=== PATIENT | female | born 1945 | race Two or more races ===

== ENCOUNTER 2019-06-20 22:11 | Inpatient (IN) | payer MEDICARE, OTHER ==
[~2019-06-20] VITALS: Ht 167.6 cm; Wt 61.2 kg
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
--- NOTE | 2019-06-20 22:20 | NUR ---
Dr. Thomas at bedside for MSE.
[2019-06-20 22:42] LABS: BASOPHILS % (AUTO) 0.5 % (0.0-2.0); EOSINOPHILS # (AUTO) 0.1 K/uL (0.0-0.7); EOSINOPHILS % (AUTO) 2.2 % (0.0-7.0); HEMATOCRIT 37.7 % (31.2-41.9); HEMOGLOBIN 12.5 g/dL (10.9-14.3); LYMPHOCYTES # (AUTO) 1.8 K/uL (20.0-40.0); LYMPHOCYTES % (AUTO) 31.7 % (20.5-51.5); MEAN CORPUSCULAR HEMOGLOBIN 32.2 uug (24.7-32.8); MEAN CORPUSCULAR HGB CONC 33 g/dL (32.3-35.6); MEAN CORPUSCULAR VOLUME 96.8 fL (75.5-95.3); MONOCYTES # (AUTO) 0.5 K/uL (2.0-10.0); MONOCYTES % (AUTO) 8.1 % (0.0-11.0); NEUTROPHILS # (AUTO) 3.2 K/uL (1.8-8.9); NEUTROPHILS % (AUTO) 57.5 % (38.5-71.5); PLATELET COUNT (AUTO) 155 K/uL (179-408); RED BLOOD CELL COUNT(AUTO) 3.89 MIL/uL (3.63-4.92); WHITE BLOOD COUNT (AUTO) 5.6 K/uL (3.8-11.8)
[2019-06-20] MEDS ORDERED: MAGN400O6 PO (22:44)
[2019-06-20] MEDS ORDERED: NA P133E RC (22:44)
[2019-06-20] MEDS ORDERED: LORA-258 PO (22:44)
[2019-06-20] MEDS ORDERED: MAG-55 PO (22:44)
[2019-06-20] MEDS ORDERED: CETI-110 PO (22:44)
[2019-06-20] MEDS ORDERED: ACET-2154 PO (22:44)
[2019-06-20] MEDS ORDERED: DIVA500T2 PO (22:44)
[2019-06-20] MEDS ORDERED: ATOR10TA PO (22:44)
[2019-06-20] MEDS ORDERED: CLON0.1T14 PO (22:44)
[2019-06-20] MEDS ORDERED: QUET100T PO (22:44)
[2019-06-20] MEDS ORDERED: QUET50TA PO (22:44)
[2019-06-20 22:51] LABS: CARBON DIOXIDE 32 mmol/L (21-32); CHLORIDE 102 mmol/L (98-107); CREATININE 0.9 mg/dL (0.6-1.3); GLUCOSE 88 mg/dL (74-106); POTASSIUM 3.8 mmol/L (3.5-5.1); UREA NITROGEN, BLOOD 18 mg/dL (7-18)
[2019-06-20] MEDS ORDERED: diphenhydrAMINE 50 MG/1 ML VIAL ONE (22:51)
--- NOTE | 2019-06-20 22:55 | NUR ---
Left voicemail for Sherin crisis decorator store to call us back.
[2019-06-20 22:57] LABS: ALANINE AMINOTRANSFERASE 19 U/L (14-59); ALKALINE PHOSPHATASE 48 U/L (50-136); ASPARTATE AMINOTRANSFERASE 13 U/L (15-37); BILIRUBIN,DIRECT 0.1 mg/dL (0.0-0.2); BILIRUBIN,TOTAL 0.3 mg/dL (0.2-1.0)
[2019-06-20] MEDS ORDERED: diphenhydrAMINE 50 MG/1 ML VIAL IM ONE (23:00)
[2019-06-20 23:02] LABS: *BILIRUBIN,URIN NEGATIVE (NEGATIVE); *BLOOD, URINE NEGATIVE (NEGATIVE); *CLARITY,URINE CLEAR (CLEAR); *COLOR,URINE YELLOW (YELLOW); *KETONES,URINE NEGATIVE (NEGATIVE); *UROBILINOGEN,URINE 0.2 E.U./dl (NORMAL); LEUKOCYTE ESTERASE ,URINE NEGATIVE (NEGATIVE); NITRITE, URINE NEGATIVE (NEGATIVE); UGLUCOSE NEGATIVE (NEGATIVE)
[2019-06-20 23:07] LABS: ACETAMINOPHEN < 2.0 ug/mL (10-30)
[2019-06-20 23:08] LABS: ETHANOL < 3 MG/DL (0-0)
[2019-06-20 23:09] LABS: *AMPHETAMINE, URINE NEGATIVE (NEGATIVE); *BARBITURATE, URINE NEGATIVE (NEGATIVE); *CANNABINOID, URINE NEGATIVE (NEGATIVE); *COCCAINE, URINE NEGATIVE (NEGATIVE); *OPIATE, URINE NEGATIVE (NEGATIVE); *PHENCYCLIDINE SCREEN,URINE NEGATIVE (NEGATIVE)
--- NOTE | 2019-06-20 23:33 | NUR ---
Spoke with Sherin, will be here shortly to evluate patient.
--- NOTE | 2019-06-21 00:43 | NUR ---
Sherin at bedside for eval.
[2019-06-21] MEDS ORDERED: HALOPERIDOL LACTATE 5 MG/1 ML VIAL IM ONE (01:00)
[2019-06-21] MEDS ORDERED: HALOPERIDOL LACTATE 5 MG/1 ML VIAL ONE (01:01)
--- NOTE | 2019-06-21 01:32 | NUR ---
Pt. admitted to MHU , under care of Dr. ANGELES Belongs List completed.
[2019-06-21 02:00] VITALS: BP 142/75
[2019-06-21] MEDS ORDERED: MAG HYDROX/AL HYDROX/SIMETH 30 ML LIQUID UDC PO PRN (02:00)
[2019-06-21] MEDS ORDERED: MAGNESIUM HYDROXIDE 30 ML LIQUID UDC PO PRN (02:00)
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
[2019-06-21] MEDS: CLONAZEPAM 0.5 MG TABLET PO PRN ×3 (08:37→20:54)
[2019-06-21 10:46] VITALS: BP 134/62
[2019-06-21] MEDS ORDERED: FLEET ENEMA 133 ML BOTTLE RC PRN (12:00)
[2019-06-21] MEDS ORDERED: CLONIDINE HCL 0.1 MG TABLET PO PRN (12:00)
[2019-06-21 12:35] LABS: THYROID STIMULATING HORMONE 8.611 mIU/mL (0.358-3.740)
[2019-06-21] MEDS ORDERED: INFLUENZA VACCINE 2019-2020 0.5 ML DISP.SYRIN IM ONE (13:30)
[2019-06-21] MEDS ORDERED: PNEUMOCOCCAL 23-VAL P-SAC VAC 0.5 ML VIAL IM ONE (13:30)
[2019-06-21] MEDS: ACETAMINOPHEN 325 MG TABLET PO PRN (15:16)
[2019-06-21 15:53] VITALS: BP 140/62
[2019-06-21] MEDS: VALPROIC ACID 250 MG/5 ML LIQUID UDC PO SCH (17:56)
[2019-06-21] MEDS: OLANZAPINE ZYDIS 5 MG TAB.RAPDIS PO SCH (20:09)
[2019-06-21] MEDS: ATORVASTATIN 10 MG TABLET PO SCH (20:09)
[2019-06-21 20:19] VITALS: BP 145/73
--- NOTE | 2019-06-21 21:11 | NUR ---
GPS: Pt. is confused,disoriented and disorganized. No insight to present situation. Med.compliant so far but combative,aggressive during care. Fall precautions observed. Re-directed frequently. Will continue to monitor. Denies pain at this time.
[2019-06-21] MEDS: TEMAZEPAM 7.5 MG CAPSULE PO PRN (21:48)
--- NOTE | 2019-06-22 06:02 | NUR ---
GPS: Pt.slept 8 hrs last night. Now awake and was assisted to the bathroom for elimination purposes. Remains confused,disoriented but allowing care from staff. No combative behavior noted. Fall precautions observed due to unsteady gait. Put back in bed with bed alarm on for safety. Re-directed prn.
[2019-06-22 07:30] VITALS: BP 136/62
[2019-06-22] MEDS: VALPROIC ACID 250 MG/5 ML LIQUID UDC PO SCH ×2 (08:51→20:26)
[2019-06-22] MEDS: CETIRIZINE HCL 10 MG TABLET PO SCH (08:52)
--- NOTE | 2019-06-22 11:12 | NUR ---
Social Work Family Contact: receiving worker spoke with patient's wwauob-hb-zau Roxanna ([phone]) who stated that she is the DPOA for the patient and will send documentations to this song writer. receiving worker discussed patient's discharge plan and treatment plan. Per Roxanna, she would want patient to go back to [facility].
--- NOTE | 2019-06-22 11:12 | NUR ---
Social Work Initial Discharge Plan: Patient currently resides at [facility] [address] [place] [address]; ([phone]). vegetable ii farmworker spoke with hxpxks-lz-gar Roxanna ([phone]) stated that she would want patient back to [facility]. vegetable ii farmworker spoke with Aileen ([phone]) who stated that admin coordinator will contact this tag writer. vegetable ii farmworker will work with the pt and the MD regarding appropriate discharge planning. vegetable ii farmworker will form a safe and proper discharge.
--- NOTE | 2019-06-22 13:17 | NUR ---
Social Work Coordination of Care: boom worker spoke with Mi ([phone]) and stated that they are going to have a discussion about the patient and will get back to this lead technical writer.
--- NOTE | 2019-06-22 15:01 | NUR ---
Social Work Individual Therapy: tailings worker met with patient for brief counseling to address patients aggressive and combative behavior. Patient is not cooperative with this development writer. This development writer was unable to have a meaningful conversation with this patient and is unable to have proper eye contact. Patient is incoherent and is unable to understand common verbal requests. Patient presents anxious and confused. This development writer attempted to conversate with patient and has a blank stare unable to comprehend.
[2019-06-22] MEDS: CLONAZEPAM 0.5 MG TABLET PO PRN (15:16)
[2019-06-22 16:00] VITALS: BP 140/83
[2019-06-22] MEDS: OLANZAPINE ZYDIS 5 MG TAB.RAPDIS PO SCH (20:26)
[2019-06-22] MEDS: ATORVASTATIN 10 MG TABLET PO SCH (20:26)
[2019-06-22 20:50] VITALS: BP 123/64
--- NOTE | 2019-06-22 22:00 | NUR ---
received to care, up in simona chair for safety, talking to self, appearing distracted by internal stimuli. compliant with medications and staff direction. as of 2199, she is asleep, in bed. no distress noted. will continue to monitor closely.
--- NOTE | 2019-06-23 06:00 | NUR ---
slept fairly well. continues to sleep. no distress noted.
[2019-06-23] MEDS: LEVOTHYROXINE SODIUM 25 MCG TABLET PO SCH (06:42)
[2019-06-23 07:30] VITALS: BP 152/81
[2019-06-23] MEDS: CETIRIZINE HCL 10 MG TABLET PO SCH (08:24)
[2019-06-23] MEDS: VALPROIC ACID 250 MG/5 ML LIQUID UDC PO SCH ×2 (08:25→20:32)
[2019-06-23 16:00] VITALS: BP 127/85
[2019-06-23] MEDS: CLONAZEPAM 0.5 MG TABLET PO PRN (16:14)
[2019-06-23 20:00] VITALS: BP 127/68
[2019-06-23] MEDS: ATORVASTATIN 10 MG TABLET PO SCH (20:34)
[2019-06-23] MEDS: OLANZAPINE ZYDIS 5 MG TAB.RAPDIS PO SCH (20:34)
--- NOTE | 2019-06-23 22:59 | NUR ---
GPS: Received pt sitting up in simona-chair on the hallway. Pt. alert and awake but very anxious and hyper talkative and incoherent. Cooperative with meds during routine med pass. Pt very confuse and unaware of surrounding and unable to understand common verbal request. PRN Restoril given as order due to pt. awake and very anxious still after routine meds. Will continue monitor for effectiveness and monitor for adverse effect.
[2019-06-23] MEDS: TEMAZEPAM 7.5 MG CAPSULE PO PRN (23:16)
[2019-06-24] MEDS: LEVOTHYROXINE SODIUM 25 MCG TABLET PO SCH (06:29)
--- NOTE | 2019-06-24 06:43 | NUR ---
Pt. slept 5.30min during shift with PRN Restoril give due to restlessness and anxious. Left in bed, awake to light touch.
[2019-06-24 07:30] VITALS: BP 123/94
[2019-06-24] MEDS: CETIRIZINE HCL 10 MG TABLET PO SCH (10:30)
[2019-06-24] MEDS: VALPROIC ACID 250 MG/5 ML LIQUID UDC PO SCH ×2 (10:32→20:24)
--- NOTE | 2019-06-24 14:37 | NUR ---
Social Work Coordination of Care: supervisor cemetery workers attempted to contact Mi YE ([phone]) 3 times on 06/23 but she has been unavailable. This jingle writer finally was able to get a hold of her and stated that they do not have an answer yet if patient will be welcomed back and will give this jingle writer an answer on 06/27/19. This jingle writer will follow-up.
--- NOTE | 2019-06-24 15:03 | NUR ---
Social Work Individual Therapy: oyster bed worker met with patient for brief counseling to address patients aggressive and combative behavior. Patient is not cooperative with this junior copywriter and is unable to conversate in a meaningful conversation. Patient is unable to comprehend.
[2019-06-24 15:14] VITALS: BP 132/57
--- NOTE | 2019-06-24 15:36 | NUR ---
Social Work Firearms Report: Fish Straightener completed and submitted a [employer] firearms report for 5250 grave disability certification. A copy of report has been placed in patient's chart.
[2019-06-24] MEDS: CLONAZEPAM 0.5 MG TABLET PO PRN (17:13)
[2019-06-24] MEDS: HYDROCORTISONE 0.5% CREAM 28.35 GM TUBE TOP PRN (17:16)
[2019-06-24] MEDS: ATORVASTATIN 10 MG TABLET PO SCH (20:24)
[2019-06-24] MEDS: OLANZAPINE ZYDIS 5 MG TAB.RAPDIS PO SCH (20:24)
[2019-06-24 21:09] VITALS: BP 119/64
--- NOTE | 2019-06-24 22:00 | NUR ---
received to care, up in simona chair for safety, appearing confused, talking to self, but pleasant upon approach. compliant with medications and staff direction. as of 0, she is asleep, in bed. no distress noted. will continue to monitor closely.
--- NOTE | 2019-06-25 03:42 | NUR ---
ALEM hall given for anxiety. Addendum: 06/25/19 at 0648 by ADAMARIS NOEL LVN error/wrong patient
--- NOTE | 2019-06-25 05:30 | NUR ---
slept fairly well. continues to sleep. no distress noted.
[2019-06-25] MEDS: LEVOTHYROXINE SODIUM 25 MCG TABLET PO SCH (06:15)
[2019-06-25 07:30] VITALS: BP 147/70
--- NOTE | 2019-06-25 07:30 | NUR ---
on bed, no distress noted. sleeping well. monitored for safety, fall.
[2019-06-25] MEDS: VALPROIC ACID 250 MG/5 ML LIQUID UDC PO SCH ×3 (08:32→20:22)
[2019-06-25] MEDS: CETIRIZINE HCL 10 MG TABLET PO SCH ×2 (08:32→10:51)
--- NOTE | 2019-06-25 09:00 | NUR ---
still sleeping comfortably. no distress noted
--- NOTE | 2019-06-25 10:50 | NUR ---
awake, breakfast served, took am meds late. assisted to chair for safety
[2019-06-25] MEDS: HYDROCORTISONE 0.5% CREAM 28.35 GM TUBE TOP PRN (11:44)
[2019-06-25] MEDS: CLONAZEPAM 0.5 MG TABLET PO PRN (15:10)
[2019-06-25 15:16] VITALS: BP 148/75
--- NOTE | 2019-06-25 15:18 | NUR ---
patient up chair, looking around , getting anxious. discussed relaxation , refused to go to tv room. medicated for anxiety. appreciative
--- NOTE | 2019-06-25 18:14 | NUR ---
cooperative, takes meds well. no outburst noted. med for anxiety with relief. spoke with brother and sister in law.
[2019-06-25 20:00] VITALS: BP 117/70
[2019-06-25] MEDS: OLANZAPINE ZYDIS 5 MG TAB.RAPDIS PO SCH (20:23)
[2019-06-25] MEDS: ATORVASTATIN 10 MG TABLET PO SCH (20:23)
--- NOTE | 2019-06-25 21:22 | NUR ---
GPS: Pt alert and up in simona-chair. no s/s of new changes or distress noted. pt noted more hyperverbal tonight and confuse, seem wanted to talk about past life but become lost of words. Pt cooperative with routine medications and ADL care. Not combative, no aggression episode at this time. will continue monitor.
[2019-06-26] MEDS: HYDROCORTISONE 0.5% CREAM 28.35 GM TUBE TOP PRN (00:32)
[2019-06-26] MEDS: TEMAZEPAM 7.5 MG CAPSULE PO PRN ×2 (00:34→21:34)
--- NOTE | 2019-06-26 00:50 | NUR ---
Pt. was noted with no BM for few days and PRN MOM given as order at 1120. Offer plenty of fluid as tolerated while awake. Pt unable to sleep and becoming talkative and restless, PRN Restoril was given at 1245. will monitor for safety and effectiveness or s/s of adverse effect.
[2019-06-26] MEDS: LEVOTHYROXINE SODIUM 25 MCG TABLET PO SCH (06:36)
--- NOTE | 2019-06-26 06:47 | NUR ---
Pt slept 4.45mins during shift, with sleep aid effective. continue monitor with no behavior noted.
[2019-06-26 07:30] VITALS: BP 132/62
[2019-06-26] MEDS: VALPROIC ACID 250 MG/5 ML LIQUID UDC PO SCH ×2 (08:28→20:05)
[2019-06-26] MEDS: CETIRIZINE HCL 10 MG TABLET PO SCH (08:28)
[2019-06-26] MEDS: CLONAZEPAM 0.5 MG TABLET PO PRN ×2 (12:58→18:51)
--- NOTE | 2019-06-26 13:00 | NUR ---
SITTING UP IN THE D/ROOM AWAKE CONFUSED STARTING TO GET AGITATED UNABLE TO BE REDIRECTED MEDICATED WITH KLONOPIN ORDERED WILL CONTINUE TO OBSERVE AND PROVIDE SAFE AND THERAPEUTIC ENVIRONMENT AT ALL TIMES.
[2019-06-26 16:00] VITALS: BP 103/63
--- NOTE | 2019-06-26 18:00 | NUR ---
ALERT TO SELF WITH CONFUSSION AND DISORIENTATION UP ON THE LARS/CHAIR DEPRESSED ALL NEEDS ANTICIPATED AND SATISFIED WITH MAX ASSIST WILL CONTINUE TO PROVIDE SAFE AND THERAPEUTIC ENVIRONMENT AT ALL TIMES.
--- NOTE | 2019-06-26 18:52 | NUR ---
GETTING VERY AGITATED SITTING UP ON THE LARS CHAIR UNABLE TO REDIRECT AT RISK FOR FALLS MEDICATED WITH KLONOPIN ORDERED WILL ENDORSE AND OBSERVE
[2019-06-26] MEDS: ATORVASTATIN 10 MG TABLET PO SCH (20:05)
[2019-06-26] MEDS: OLANZAPINE ZYDIS 5 MG TAB.RAPDIS PO SCH (20:05)
[2019-06-26 20:19] VITALS: BP 122/81
[2019-06-26] MEDS: ACETAMINOPHEN 325 MG TABLET PO PRN (21:34)
--- NOTE | 2019-06-26 22:30 | NUR ---
received to care, up in simona chair for safety, talking to self, appearing restless, and distracted by internal stimuli, but pleasant upon approach. compliant with medications, snacks, and staff direction. PRN restoril was given at 2133, for insomnia. as of 2229, she is asleep, in bed. no distress noted. will continue to monitor closely.
--- NOTE | 2019-06-27 06:00 | NUR ---
slept 7.5 hours, total. continues to sleep. no distress noted.
[2019-06-27] MEDS: LEVOTHYROXINE SODIUM 25 MCG TABLET PO SCH (06:07)
[2019-06-27 07:30] VITALS: BP 149/87
[2019-06-27] MEDS: CLONAZEPAM 0.5 MG TABLET PO PRN ×3 (09:29→19:31)
[2019-06-27] MEDS: CETIRIZINE HCL 10 MG TABLET PO SCH (09:29)
[2019-06-27] MEDS: VALPROIC ACID 250 MG/5 ML LIQUID UDC PO SCH ×2 (09:29→20:34)
[2019-06-27] MEDS: ACETAMINOPHEN 325 MG TABLET PO PRN (13:30)
--- NOTE | 2019-06-27 13:34 | NUR ---
Social Work Coordination of Care: plate worker helper spoke with Mi admin coordinator ([phone]) who stated that patient is welcomed back upon discharge and to fax ([phone]) patient's recent clinicals.
--- NOTE | 2019-06-27 14:19 | NUR ---
Social Work Individual Therapy: No group is being held due to donovan virus precautions. sand car worker met with patient to discus topic the importance of a support system. Patient is alert and oriented times 2. Patient presents confused and unable to engage in a meaningful conversation. Patient presenting problem is aggressive behaviors. Patient presents with impaired problem solving and attention. SW attempted to provide individual therapy with patient. Patient refuses to engage.
[2019-06-27 15:39] VITALS: BP 92/60
--- NOTE | 2019-06-27 16:43 | NUR ---
GPS: Nursing Notes: Destructive Behavior To Others: Patient is awake and responding to her name, poor insight, impaired judgment, confused, disoriented, resistant with nursing care by pushing staff aways and striking out to staff, gets easily irritable when redirected, unable to formulate a viable plan for self care, episodes of wandering around the unit aimlessly, poor impulse control, constantly redirected and reoriented during shift, stating "I want snore the white line...", episodes of talking incoherently, continue with treatment plan.
[2019-06-27 20:00] VITALS: BP 109/64
[2019-06-27] MEDS: ATORVASTATIN 10 MG TABLET PO SCH (20:34)
[2019-06-27] MEDS: OLANZAPINE ZYDIS 5 MG TAB.RAPDIS PO SCH (20:34)
--- NOTE | 2019-06-27 22:00 | NUR ---
received to care, up in simona chair for safety, pleasant upon approach, talking to self, restless, and appearing distracted by internal stimuli. compliant with medications, snacks, and staff direction. ALEM hall was given at 1930, for agitation/ anxiety. as of 2199, she remains awake, up in simona chair, talking to self. no distress noted. will continue to monitor closely.
[2019-06-27] MEDS: TEMAZEPAM 7.5 MG CAPSULE PO PRN (22:16)
--- NOTE | 2019-06-27 22:16 | NUR ---
remains awake, and restless. PRN restoril was given for insomnia.
--- NOTE | 2019-06-27 23:30 | NUR ---
assisted to bed, around 2300. as of 2329, she appears to be asleep. no distress noted. will continue to monitor closely.
--- NOTE | 2019-06-28 06:09 | NUR ---
slept 7.5 hours, total. continues to sleep. no distress noted.
[2019-06-28] MEDS: LEVOTHYROXINE SODIUM 25 MCG TABLET PO SCH (06:21)
[2019-06-28 08:21] VITALS: BP 128/68
[2019-06-28] MEDS: VALPROIC ACID 250 MG/5 ML LIQUID UDC PO SCH ×2 (08:25→21:39)
[2019-06-28] MEDS: CETIRIZINE HCL 10 MG TABLET PO SCH (08:25)
[2019-06-28] MEDS: CLONAZEPAM 0.5 MG TABLET PO PRN ×3 (09:35→20:19)
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
[2019-06-28 15:57] VITALS: BP 106/65
[2019-06-28] MEDS: ACETAMINOPHEN 325 MG TABLET PO PRN (16:16)
[2019-06-28] MEDS: HYDROCORTISONE 0.5% CREAM 28.35 GM TUBE TOP PRN (17:54)
[2019-06-28 20:16] VITALS: BP 122/72
[2019-06-28] MEDS: OLANZAPINE ZYDIS 5 MG TAB.RAPDIS PO SCH (21:39)
[2019-06-28] MEDS: ATORVASTATIN 10 MG TABLET PO SCH (21:39)
--- NOTE | 2019-06-28 22:00 | NUR ---
received to care, pleasant upon approach, up in simona chair for safety, talking to self. compliant with medications, snacks, and staff direction. ALEM hall was given at 2018, for agitation/ anxiety. as of 2199, she remains awake, up in simona chair, talking to self. no distress noted. will continue to monitor closely.
[2019-06-28] MEDS: TEMAZEPAM 7.5 MG CAPSULE PO PRN (23:11)
--- NOTE | 2019-06-28 23:11 | NUR ---
PRN restoril, given for insomnia.
--- NOTE | 2019-06-28 23:40 | NUR ---
assited to bed, around 0. as of 2339, she appears to be asleep. no distress noted. will continue to monitor closely.
--- NOTE | 2019-06-29 06:00 | NUR ---
slept 7.5 hours, total. continues to sleep. no distress noted.
[2019-06-29] MEDS: LEVOTHYROXINE SODIUM 25 MCG TABLET PO SCH (06:16)
[2019-06-29 07:30] VITALS: BP 133/64
[2019-06-29] MEDS: VALPROIC ACID 250 MG/5 ML LIQUID UDC PO SCH ×2 (09:55→21:33)
[2019-06-29] MEDS: CETIRIZINE HCL 10 MG TABLET PO SCH (09:56)
[2019-06-29] MEDS: CLONAZEPAM 0.5 MG TABLET PO PRN ×2 (10:29→21:33)
--- NOTE | 2019-06-29 14:30 | NUR ---
Social Work Individual Therapy: No group is being held due to COVID-19 virus precautions. ash worker met with patient to discuss topic Identifying a support system. Patient is alert to self only. Patient presents confused and unable to engage in a meaningful conversation. Patient presenting problem is aggressive and combative behaviors. SW attempted to provide individual therapy with patient. Patient refuses to engage with this display card writer and is unable to engage in a meaningful conversation.
[2019-06-29 16:00] VITALS: BP 123/65
[2019-06-29] MEDS: ATORVASTATIN 10 MG TABLET PO SCH (21:33)
[2019-06-29] MEDS: OLANZAPINE ZYDIS 5 MG TAB.RAPDIS PO SCH (21:33)
[2019-06-29] MEDS: TEMAZEPAM 7.5 MG CAPSULE PO PRN (21:34)
[2019-06-29] MEDS: HYDROCORTISONE 0.5% CREAM 28.35 GM TUBE TOP PRN (21:35)
[2019-06-29 23:02] VITALS: BP 129/73
--- NOTE | 2019-06-30 06:12 | NUR ---
GPS/NSG Patient first observed sitting in simona chair awake on the unit. Alert, unable to state name, date, or situation. Patient appeared to have no insight, unable to care for self, requires maximum assist. Unable to ambulate without assist. Patient is at risk for falls. Skin integrity is poor, patient observed to have a rash all over, posterior, anterior extremities. Prn applied as indicated per order. Patient compliant with HS medication. PRN for anxiety administered, as well as prn for insomnia with effective outcome. Will continue to monitor for pt. safety. Last observed lying in bed with eyes closed, appeared to be asleep, no acute distress noted.
[2019-06-30] MEDS: LEVOTHYROXINE SODIUM 25 MCG TABLET PO SCH (06:33)
[2019-06-30] MEDS: VALPROIC ACID 250 MG/5 ML LIQUID UDC PO SCH ×2 (09:16→20:21)
[2019-06-30] MEDS: CETIRIZINE HCL 10 MG TABLET PO SCH (09:17)
--- NOTE | 2019-06-30 10:17 | NUR ---
Social Work Firearms Report (DOJ): Radiation Control Worker completed and submitted a [employer] firearms report for 5250 grave disability certification. A copy of report has been placed in patient chart.
--- NOTE | 2019-06-30 10:30 | NUR ---
Social Work Coordination of Care: marquetry worker called [facility] to speak with Mi admin coordinator, Codyce Raise Driller, Jesus or marly Nurses and no one is available to speak to at the moment ([phone]). This va underwriter wanted to inquire about if the facility will provide transportation for the patient from the hospital back to the facility. Will attempt to call again.
--- NOTE | 2019-06-30 10:36 | NUR ---
Social Work Family Contact: SW spoke with Roxanna Burgos, patient's soqkrj-nm-wbx ([phone]) if they can provide transportation and they live in [place] and will be unable to.
--- NOTE | 2019-06-30 11:25 | NUR ---
Social Work Discharge Planning: BROWN spoke with Roxanna Burgos, patient's wawhmj-yi-dzr ([phone]) if they would be able to pay for [facility] transportation for the patient and they agreed. BROWN scheduled [facility] and spoke with Valeria ([phone]) and scheduled a grape picker time for 11am. BROWN called and informed Roxanna of the schedule and Roxanna will call [facility] to pay $139. Addendum: 06/30/19 at 1135 by JAMAL MARTINEZ linen room supervisor time changed to 12:30pm.
--- NOTE | 2019-06-30 14:10 | NUR ---
Social Work Individual Therapy: No group is being held due to COVID-19 virus precautions. dump worker met with patient to discuss topic Setting Boundaries. Patient presents with impaired attention and tracking, confused and disoriented, and impaired problem solving. Patient presenting problem is aggressive and combative behaviors. SW provided active listening, and explored patient's feelings and thoughts. Patient was able to minimally engage in conversation however patient is unable to stay on topic and is non-sensical.
[2019-06-30] MEDS: CLONAZEPAM 0.5 MG TABLET PO PRN ×2 (15:15→23:57)
[2019-06-30 16:53] VITALS: BP 106/57
[2019-06-30] MEDS: OLANZAPINE ZYDIS 5 MG TAB.RAPDIS PO SCH (20:21)
[2019-06-30] MEDS: ATORVASTATIN 10 MG TABLET PO SCH (20:21)
[2019-06-30 20:23] VITALS: BP 125/59
--- NOTE | 2019-06-30 20:51 | NUR ---
GPS: Pt received up in simona chair in the hallway. Pt A/Ox1, confuse and expressing herself or staffs incoherently. Vital signs stable and no temp noted, no pain noted on facial. Routine medications given as order. Will continue monitor and [id number] face to face will be done.
[2019-06-30] MEDS: TEMAZEPAM 7.5 MG CAPSULE PO PRN (21:27)
--- NOTE | 2019-06-30 22:02 | NUR ---
Pt became combative and aggressive when transferring to bed, pt is very confuse and unaware of command. Pt try to climb out of simona chair unassisted. PRN Restoril given about 2139 and will monitor.
[2019-06-30] MEDS: HYDROCORTISONE 0.5% CREAM 28.35 GM TUBE TOP PRN (23:10)
--- NOTE | 2019-06-30 23:14 | NUR ---
Pt still awake and restless, Restoril not effective. Noted pt itching a lot and scratching upper body, PRN hydrocortisone cream applied as ordered. Pt is very restless and confuse.
[2019-07-01] MEDS: LEVOTHYROXINE SODIUM 25 MCG TABLET PO SCH (06:28)
--- NOTE | 2019-07-01 06:44 | NUR ---
Pt was monitor during night with agitation and restless, confuse. PRN Klonopin gave at 2320 was not effective after Restoril. Pt was managed and slept about 2.30mins on and off in simona chair. Pt will not stay in bed.
[2019-07-01 07:52] VITALS: BP 138/81
--- NOTE | 2019-07-01 08:05 | NUR ---
Social Work Discharge Note: [place] [address] ([phone]). Patient will be provided transportation via [employer] ([phone]) and will be picked up at 12:30PM, spoke with Valeria. BROWN spoke with Mi professional system administrator, ([phone]) at the facility who states they are ready to accept the patient back today. Patient is aware and agreeable with discharge plans. Patients [id number] Roxanna ([phone]) is aware and agreeable with discharge plans. Patient is alert and oriented x1, is unable to plan for self-care, but agrees to receiving care at the facility. Patient denies any suicidal or homicidal ideations. Patient presents with withdrawn mood and congruent affect. Per Mi ([phone]), patient will follow-up at the facility with Dr. Jett (Civil Cad Tech) and will provide with psychotropic medication. Patient presents with euthymic mood and congruent affect. Patient was provided with outpatient mental health resources to [facility] Crisis Line , and the National Suicide Prevention Lifeline .
[2019-07-01] MEDS: CETIRIZINE HCL 10 MG TABLET PO SCH (08:37)
[2019-07-01] MEDS: VALPROIC ACID 250 MG/5 ML LIQUID UDC PO SCH (08:38)
--- NOTE | 2019-07-01 13:58 | NUR ---
Gps/Sedimentationist- Prescriptions called in to [facility], ([phone]) as per Hector Mcginnis DNP ([phone]) [facility] [employer] . supervisor film processing time changed to 4059
--- NOTE | 2019-07-01 15:23 | NUR ---
Gps/Silver Plater- [facility] transportation in to product picker patient, all belongings given, back to pt. in no distress, afebrile, no complaints noted.
[2019-07-01] MEDS ORDERED: OLAN5TAB3 PO (21:59)
[2019-07-01] MEDS ORDERED: VALP250S22 PO (21:59)
== END 2019-07-01 15:28 | DRG 885 ==
LOC: EDBD → ER 22:11 → GPS 06-21 01:48
PROVIDERS: ADMIT Psychiatry & Neurology Psychiatry; ATTEND Internal Medicine
DX: F25.9 Schizoaffective disorder, unspecified (principal); F03.91 Unspecified dementia, unspecified severity, with behavioral disturbance; D68.69 Other thrombophilia; D69.6 Thrombocytopenia, unspecified; E03.9 Hypothyroidism, unspecified; E78.5 Hyperlipidemia, unspecified; I10 Essential (primary) hypertension; R73.03 Prediabetes; D75.89 Other specified diseases of blood and blood-forming organs; F29 Unspecified psychosis not due to a substance or known physiological condition
CPT/HCPCS: 36415; 80164; 80307; 84443; 85025; 90686; 90732; 93005; A4663; G0480; G0480-TC; J1200; J1630

== ENCOUNTER 2019-07-01 21:41 | Emergency (ER) | payer MEDICARE, OTHER ==
[~2019-07-01] VITALS: Ht 170.2 cm; Wt 55.3 kg
--- NOTE | 2019-07-01 21:53 | NUR ---
Dr. Castanon at bedside for MSE.
--- NOTE | 2019-07-01 22:00 | NUR ---
Xray at bedside.
[2019-07-01 22:09] LABS: BASOPHILS % (AUTO) 0.3 % (0.0-2.0); EOSINOPHILS # (AUTO) 0.1 K/uL (0.0-0.7); EOSINOPHILS % (AUTO) 1.9 % (0.0-7.0); HEMATOCRIT 33.9 % (31.2-41.9); HEMOGLOBIN 11.8 g/dL (10.9-14.3); LYMPHOCYTES # (AUTO) 1.5 K/uL (20.0-40.0); LYMPHOCYTES % (AUTO) 26.8 % (20.5-51.5); MEAN CORPUSCULAR HEMOGLOBIN 33.3 uug (24.7-32.8); MEAN CORPUSCULAR HGB CONC 35 g/dL (32.3-35.6); MONOCYTES # (AUTO) 0.6 K/uL (2.0-10.0); MONOCYTES % (AUTO) 11.8 % (0.0-11.0); NEUTROPHILS # (AUTO) 3.3 K/uL (1.8-8.9); NEUTROPHILS % (AUTO) 59.2 % (38.5-71.5); PLATELET COUNT (AUTO) 142 K/uL (179-408); RED BLOOD CELL COUNT(AUTO) 3.53 MIL/uL (3.63-4.92); WHITE BLOOD COUNT (AUTO) 5.5 K/uL (3.8-11.8)
--- NOTE | 2019-07-01 22:15 | NUR ---
Inserted wade catheter, pt tolerated procedure well, urine sample collected, sent to lab.
[2019-07-01 22:23] LABS: ETHANOL < 3 MG/DL (0-0)
[2019-07-01 22:23] LABS: *BILIRUBIN,URIN NEGATIVE (NEGATIVE); *CLARITY,URINE CLOUDY (CLEAR); *COLOR,URINE YELLOW (YELLOW); *KETONES,URINE NEGATIVE (NEGATIVE); *UROBILINOGEN,URINE 0.2 E.U./dl (NORMAL); LEUKOCYTE ESTERASE ,URINE 3+ (NEGATIVE); NITRITE, URINE POSITIVE (NEGATIVE); UGLUCOSE NEGATIVE (NEGATIVE)
[2019-07-01 22:27] LABS: ACETAMINOPHEN < 2.0 ug/mL (10-30); ALANINE AMINOTRANSFERASE 19 U/L (14-59); ALKALINE PHOSPHATASE 55 U/L (50-136); ASPARTATE AMINOTRANSFERASE 17 U/L (15-37); BILIRUBIN,DIRECT 0.1 mg/dL (0.0-0.2); BILIRUBIN,TOTAL 0.2 mg/dL (0.2-1.0); CARBON DIOXIDE 32 mmol/L (21-32); CHLORIDE 102 mmol/L (98-107); CREATININE 0.9 mg/dL (0.6-1.3); GLUCOSE 116 mg/dL (74-106); TOTAL PROTEIN, SERUM 6.4 g/dL (6.4-8.2); UREA NITROGEN, BLOOD 20 mg/dL (7-18)
[2019-07-01 22:31] LABS: *BLOOD, URINE TRACE (NEGATIVE)
[2019-07-01 22:33] LABS: BACTERIA,URINE MANY /HPF (NONE SEEN); SQUAMOUS EPITHELIAL CELL,UR FEW /HPF (NONE SEEN); WBC,URINE TNTC /HPF (0-3)
--- NOTE | 2019-07-01 22:35 | NUR ---
Medically cleared by Dr Castanon. Called Dylan MATOSW to eval patient.
[2019-07-01 22:37] LABS: *AMPHETAMINE, URINE NEGATIVE (NEGATIVE); *BARBITURATE, URINE NEGATIVE (NEGATIVE); *CANNABINOID, URINE NEGATIVE (NEGATIVE); *COCCAINE, URINE NEGATIVE (NEGATIVE); *OPIATE, URINE NEGATIVE (NEGATIVE); *PHENCYCLIDINE SCREEN,URINE NEGATIVE (NEGATIVE)
[2019-07-01] MEDS ORDERED: OLANZAPINE 10 MG VIAL IM ONE ×2 (22:45)
[2019-07-01] MEDS ORDERED: SULFAMETH/TRIMETH 800/160 MG TABLET PO ONE (23:00)
[2019-07-01] MEDS ORDERED: SULFAMETH/TRIMETH 800/160 MG TABLET ONE (23:06)
--- NOTE | 2019-07-01 23:19 | NUR ---
Dylan MATOSW arrived to ER for pt psych eval.
--- NOTE | 2019-07-01 23:20 | NUR ---
Called [facility] to page Dr. Mikaela Lassiter.
--- NOTE | 2019-07-01 23:20 | NUR ---
Татьяна lund in [facility] - 07/01/19 at 2339 by SAM Called [facility] to wang Dickens NP.
--- NOTE | 2019-07-01 23:36 | NUR ---
Dr. Castanon on panel call with Dr. Mikaela Lassiter. Patient not accepted for admission.
--- NOTE | 2019-07-01 23:37 | NUR ---
Татьяна lund in ED - 07/01/[address] Castanon on panel call with Mikaela Lassiter NURSING HOME AIDE. Patient not accepted for admission.
--- NOTE | 2019-07-02 01:10 | NUR ---
Pt placed on 5150 hold for gravely disabled by Dylan Zeng LCSW, to be transferred to [facility].
--- NOTE | 2019-07-02 01:16 | NUR ---
[facility] to [facility], trip#[id number], eta 20-30 min ~0145.
--- NOTE | 2019-07-02 01:24 | NUR ---
Report given to Tarah Patricio Tereso.
--- NOTE | 2019-07-02 02:00 | NUR ---
[facility] arrived to ER to transport patient to [facility]. Report and documentation given to EMT.
[2019-07-02] MEDS ORDERED: CLONIDINE HCL 0.2 MG TABLET PO ONE (02:45)
--- NOTE | 2019-07-02 02:50 | NUR ---
Pt out of ER via [facility]. VSS.
[2019-07-02 02:56] VITALS: BP 133/65
== END 2019-07-02 02:58 ==
LOC: ER 21:52
DX: N39.0 Urinary tract infection, site not specified (principal); F29 Unspecified psychosis not due to a substance or known physiological condition; F05 Delirium due to known physiological condition; E78.5 Hyperlipidemia, unspecified; G30.9 Alzheimer's disease, unspecified; F02.80 Dementia in other diseases classified elsewhere, unspecified severity, without behavioral disturbance, psychotic disturbance, mood disturbance, and anxiety
CPT/HCPCS: 36415; 71045; 80048; 80076; 80307 ×2; 80329; 81001; 85025; 87086; 93005; 99285; G0480; A4663; C1758; J2358